=== PATIENT | male | born 1965 | race Caucasian/White ===

== ENCOUNTER 2019-12-25 07:23 | Outpatient (CLI) | payer OTHER | END 2019-12-25 07:26 | disposition home or self-care (01) | LOC: SONOGRAMA 07:23 | DX: E04.1 Nontoxic single thyroid nodule (principal) ==

== ENCOUNTER → 2021-03-14 15:23 | Outpatient (CLI) | payer OTHER | END | disposition home or self-care (01) | LOC: LAB 15:23 | PROVIDERS: ATTEND Urology | DX: R97.20 Elevated prostate specific antigen [PSA] (principal) ==

== ENCOUNTER 2021-05-04 07:38 | Outpatient (CLI) | payer OTHER | END 2021-05-04 08:31 | disposition home or self-care (01) | LOC: SONOGRAMA 07:38 | PROVIDERS: ATTEND Urology | DX: D29.1 Benign neoplasm of prostate (principal); R97.20 Elevated prostate specific antigen [PSA] ==